=== PATIENT | male | born 1990 | race Hispanic/Latino ===

== ENCOUNTER 2018-06-27 18:39 | Inpatient (IN) | payer MEDICAID, OTHER ==
[2018-06-27 18:39] VITALS: BMI 24.4
--- NOTE | 2018-06-27 19:16 | C.PDOC ---
History Of Present Illness 28 y/o male presents to the ED requesting detox. Patient has a PMHx of heroin abuse, and last used earlier today. Otherwise he denies other drug use. Denies suicidal or homicidal ideation. Patient offers no physical complaints. Time Seen by Provider: 06/27/18 19:16 Chief Complaint (Nursing): Substance Abuse History Per: Patient History/Exam Limitations: no limitations Onset/Duration Of Symptoms: Days Current Symptoms Are (Timing): Still Present Suicide/Self Injury Attempted (Context): None Modifying Factor(s): Other (Heroin) Severity: None Associated Symptoms: denies: Anger, Anxiety, Suicidal Thoughts, Suicidal Plan Involuntary Hold By: None Additional History Per: Prior Records Past Medical History Reviewed: Historical Data, Nursing Documentation, Vital Signs Vital Signs: Last Vital Signs Temp 98.9 F 06/27/18 18:46 Pulse 95 H 06/27/18 18:46 Resp 18 06/27/18 18:46 BP 123/84 06/27/18 18:46 Pulse Ox 97 06/27/18 19:41 - Medical History PMH: Anxiety Denies: Depression, Diabetes, Hepatitis, HIV, HTN, Chronic Kidney Disease, Seizures, Sexually Transmitted Disease - [facility] Procedures DETOXIFICATION SERVICES FOR SUBSTANCE ABUSE TREATMENT (05/14/16) INJECT/INFUSE NEC (04/17/14) Family History: States: No Known Family Hx - Social History Hx Tobacco Use: Yes (1 PPD) Hx Alcohol Use: Yes Hx Substance Use: Yes - Immunization History Hx Tetanus Toxoid Vaccination: No Hx Influenza Vaccination: Yes Hx Pneumococcal Vaccination: No Review Of Systems Except As Marked, All Systems Reviewed And Found Negative. Constitutional: Negative for: Fever, Chills Gastrointestinal: Negative for: Nausea, Vomiting Psych: Positive for: Other (Heroin abuse). Negative for: Suicidal ideation Physical Exam - Physical Exam Appears: Non-toxic, No Acute Distress Skin: Warm, Dry Head: Normacephalic Eye(s): bilateral: Normal Inspection Oral Mucosa: Moist Neck: Trachea Midline, Supple Chest: Symmetrical Cardiovascular: Rhythm Regular Respiratory: No Rales, No Rhonchi, No Wheezing Gastrointestinal/Abdominal: Soft, No Tenderness, No Distention Extremity: Normal ROM Extremity: Bilateral: Atraumatic, Normal Color And Temperature, Normal ROM Neurological/Psych: Oriented x3 Gait: Steady ED Course And Treatment - Laboratory Results Result Diagrams: 06/27/18 19:49 06/27/18 19:49 O2 Sat by Pulse Oximetry: 97 (RA) Pulse Ox Interpretation: Normal Progress Note: Patient prescreened for detox. Blood work and urine sent. Crisis team to evaluate and arrange bed placement. Disposition Discussed With Dr.: Lucien Donovan Comment: accepted the pt on his service and took over the care at 9:37 PM Doctor Will See Patient In The: Hospital Counseled Patient/Family Regarding: Studies Performed, Diagnosis - Disposition Disposition: HOSPITALIZED Disposition Time: 19:16 Condition: FAIR Forms: [employer] (Y[place]i) - Clinical Impression Clinical Impression: Drug abuse, Drug dependence, Opioid use disorder - Scribe Statement The provider has reviewed the documentation as recorded by the Scribe (Alta Simms) Provider Attestation: All medical record entries made by the Scribe were at my direction and personally dictated by me. I have reviewed the chart and agree that the record accurately reflects my personal performance of the history, physical exam, medical decision making, and the department course for this patient. I have also personally directed, reviewed, and agree with the discharge instructions and disposition. Decision To Admit - Pt Status Changed To: Hospital Disposition Of: Inpatient - Admit Certification Admit to Inpatient:: After my assessment, the patient will require hospitalization for at least two midnights. This is because of the severity of symptoms shown, intensity of services needed, and/or the medical risk in this patient being treated as an outpatient. - InPatient: Physician Admission Certification: I certify that this patient requires 2 or more midnights of care for the following reason:: After my assessment, the patient will require hospitalization for at least two midnights. This is because of the severity of symptoms shown, intensity of services needed, and/or the medical risk in this patient being treated as an outpatient. - . Bed Request Type: Detox Admitting Physician: Lucien Donovan Patient Diagnosis: Drug abuse, Drug dependence, Opioid use disorder
[2018-06-27 20:02] LABS: BASO % 0.6 % (0.0-2.0); EOS # 0.2 K/uL (0.0-0.7); HEMOGLOBIN 14.5 g/dL (12.0-18.0); LYMPH # 1.5 K/uL (1.0-4.3); LYMPH % 18.6 % (20.0-40.0); MEAN CORPUSCULAR HEMOGLOBIN 27.8 pg (27.0-31.0); MEAN CORPUSCULAR HGB CONC 33.7 g/dL (33.0-37.0); MEAN PLATELET VOLUME 8.7 fL (7.2-11.7); MONO # 0.9 K/uL (0.0-0.8); MONO % 10.7 % (0.0-10.0); NEUT # 5.4 K/uL (1.8-7.0); NEUT % 68.1 % (50.0-75.0); NRBC % 0.2 % (0.0-2.0); RBC 5.23 Mil/uL (4.40-5.90); RED CELL DISTRIBUTION WIDTH 13.4 % (11.5-14.5); WHITE BLOOD COUNT 7.9 K/uL (4.8-10.8)
[2018-06-27 20:05] LABS: MEAN CELL VOLUME 82.5 fL (80.0-94.0)
[2018-06-27 20:29] LABS: ALB/GLOB RATIO 1.4 (1.0-2.1); ALBUMIN 4.8 g/dL (3.5-5.0); ALT/SGPT 48 U/L (21-72); AST/SGOT 65 U/L (17-59); BLOOD UREA NITROGEN 20 mg/dL (9-20); CALCIUM 9.7 mg/dl (8.6-10.4); GFR AFRICAN-AMERICAN > 60; GFR NON-AFRICAN AMERICAN > 60
[2018-06-27 20:36] LABS: URINE BILIRUBIN NEGATIVE (NEGATIVE); URINE BLOOD 1+ (NEGATIVE); URINE CLARITY Clear (Clear); URINE COLOR Yellow (YELLOW); URINE GLUCOSE (UA) NORMAL (Normal); URINE HYALINE CAST 0-2 /lpf (0-2); URINE LEUKOCYTE ESTERASE NEG Leu/uL (Negative); URINE PROTEIN 2+ mg/dL (NEGATIVE); URINE UROBILINOGEN NORMAL mg/dL (0.2-1.0)
[2018-06-27 20:51] LABS: BARBITURATES, UR NEGATIVE (NEGATIVE); BENZODIAZEPINES, UR NEGATIVE (NEGATIVE); PHENCYCLIDINE, UR NEGATIVE (NEGATIVE)
[2018-06-27 20:59] LABS: OPIATES, UR POSITIVE (NEGATIVE)
--- NOTE | 2018-06-28 01:23 | PCM.BM ---
<Ava Salas - Last Filed: 06/28/18 01:22> Treatment Plan Problems - Problems identified on initial assessmt Opiate Dependence Date Initiated: 06/27/18 Time Initiated: 23:45 Assessment reference: NA Status: Active Treatment assets and liabiliti Patient Assests: ADL independent Patient Liabilities: substance abuse - Milieu Protocol Maintain good personal hygiene: daily Encourage regular showers, daily Remind patient to perform daily oral care, daily Assist patient to perform ADL's Maintain personal safety: every shift Educate patient to report safety concerns to staff, every shift Monitor environment for contraband/sharps Medication safety: Monitor for expected outcome, potential side effects: every shift, Assess barriers to learning: every shift, Assess readiness for medication education: every shift <Zabrina Silver - Last Filed: 06/29/18 10:31> Family Contact Family involvement: Famliy/SO not involved - Goals for Treatment Patient goals for treatment: Complete detox and apply for rehab at [facility]. Discharge/Continuing Care - Education Needs Education Needs: Patient Medication, Patient Diagnosis/Disease Process, Patient Coping Skills, Patient Anger Management skills, Patient Placement options, Patient Community resources - Discharge Discharge Criteria: No longer exhibiting s/s of withdrawal, Reduction of target symptoms Discharge to:: Substance Abuse Rehab - Treatment Team Participation Patient/Family/SO Statement: 06/29/18 10:31 "I need to go to [facility] Discussed with Family/SO: No Was Patient/Family/SO present at Treatment Team Meeting: Yes <Jonel Fitzpatrick - Last Filed: 06/29/18 11:59> - Diagnosis (1) Opioid use disorder Status: Acute Interventions: 06/29/18 11:59 * Assess 7x/week regarding severity of withdrawal * Educate regarding risks, benefits, side effects and alternatives of medications * Use Motivational Interviewing for abstinence * Use CBT for relapse prevention * Medication management for withdrawal symptoms * Encourage medication assisted treatment *
[2018-06-28] MEDS ORDERED: Buprenorphine Hydrochloride 2 mg SL ONE ×2 (10:19→11:30)
--- NOTE | 2018-06-28 11:28 | PCM.PSYCH ---
Initial Psychiatric Evaluation - Initial Psychiatric Evaluation Type of Admission: Voluntary Legal Status: Capacity Chief Complaint (in patient's own words): "I want to detox from heroin" History of Present Illness and Precipitating Events: HPI: Patient is a 28 year old single male with one 3 year old child who reports for detox from heroin abuse. He states he has been using 8-10 bags intranasally and intravenously for the past year, however states he initially started using heroin at the age of 17. He admits to using cocaine, snorts 4 times a day. He states he last used yesterday morning. He admits to recently being in [facility] for burglary, released 4 months ago. He denies prior use of Suboxone or Vivitrol. He states he would like to go to [facility] upon discharge. He was recently admitted in April 2016 for heroin detox, however states that he never followed up with [facility] on discharge. He now complains of feeling tired, complaining of mild abdominal cramping, nausea. Past psychiatric illness: has been to detox twice before. History of anxiety and depression, stopped taking medications Social hx: Heroin abuse, 8-10 bags daily, intranasally and intravenously. Cocaine abuse 4 times daily since age of 19. Marijuana: 5-6 blunts daily since age 15. Smokes 1ppd cigarettes. Occasional alcohol use. Single, with one child aged 3. 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 Used to live at his child's mother's house. Released from [facility] 4 months. Family hx: Brother: heroin abuse, mother: alcohol abuse. PMH: denies Meds: None Allergies: NKDA Current Medications: Active Medications Generic Name Dose Route Start Last Admin Trade Name Freq PRN Reason Stop Dose Admin Buprenorphine HCl 6 mg 06/28/18 11:30 Subutex SL 06/28/18 11:31 ONCE ONE Buprenorphine HCl 6 mg 06/29/18 10:00 Subutex SL 07/02/18 09:59 .TAPER TAMMY Taper Clonidine HCl 0.1 mg 06/28/18 01:49 Catapres PO Q6 PRN Opiate Withdrawal Hydroxyzine HCl 25 mg 06/28/18 01:48 Atarax PO Q6 PRN Anxiety Past Psychiatric History - Past Psychiatric History Previous Treatment History: Inpatient Pertinent Medical Hx (Current Medical&Sleep Prob, Allergies): Allergies Allergy/AdvReac Type Severity Reaction Status Date / Time No Known Allergies Allergy Verified 06/27/18 18:48 No Known Home Med 06/27/18 Review of Systems - Psychiatric Psychiatric: absent: Anxiety, Auditory Hallucinations, Depression, Homicidal Ideation, Suicidal Ideation, Visual Hallucinations Mental Status Examination - Personal Presentation Personal Presentation: Looks stated age - Affect Affect: Constricted - Motor Activity Motor Activity: Calm - Reliability in Providing Information Reliability in Providing Information: Fair - Speech Speech: Organized, Relevant, Coherent - Mood Mood: Neutral - Formal Thought Process Formal Thought Process: No Impairment - Hallucinations/Delusions Additional comments: No hallucinations or delusions - Obsessions/Compulsions Obsessions: No Compulsions: No - Cognitive Functions Orientation: Person, Place, Situation, Time Sensorium: Alert Estimate of Intelligence: Average Judgement: Imparied, as evidence by: Poor judgement Memory: Recent intact, as evidence by: Ability to recall events of the day - Risk Risk: Withdrawal, Diminished functioning DSM 5 DX - DSM 5 DSM 5 Diagnosis: Opioid use disorder, severe Opioid withdrawal Cocaine use disorder - Recommended/Plan of Treatment Treatment Recommendations and Plan of Treatment: Opioid use disorder, severe Opioid withdrawal Subutex taper Clonidine 0.1mg PO Q6 PRN Atarax 25mg PO Q6 PRN Attend groups and activities Supportive therapy and psychoeducation MN for abstinence CBT for relapse prevention Encourage MAT Cocaine use disorder Attend groups and activities Supportive therapy and psychoeducation MN for abstinence CBT for relapse prevention Encourage MAT Cannabis use disorder Attend groups and activities Supportive therapy and psychoeducation MN for abstinence CBT for relapse prevention Encourage MAT 33 mins Case discussed with Dr. Nanette Haney, PGY1
[2018-06-29] MEDS: Buprenorphine Hydrochloride 2 mg SL SCH (09:24)
--- NOTE | 2018-06-29 12:49 | PCM.PYCHPN ---
Psychiatric Progress Note - Psychiatric Progress Note Patient seen today, length of contact: 16 min Patient Chief Complaint: "I feel better" Problems Identified/Issues Discussed: The pt is seen, chart reviewed, case discussed with staff. The pt is compliant with medications and reports no side-effects. Symptoms are improving but needs more time to stabilize. Pt attends groups and activities. Support given, psycho-education provided. After care discussed. Medication Change: Yes (detox changes daily) Medical Record Reviewed: Yes Mental Status Examination - Cognitive Function Orientation: Person, Place, Situation, Time Memory: Intact Attention: WNL Concentration: WNL Association: WNL Fund of Knowledge: WNL - Mood Mood: Anxious - Affect Affect: Constricted - Speech Speech: Appropriate - Formal Thought Process Formal Thought Process: No Impairment - Suicidal Ideation Suicidal Ideation: No - Homicidal Ideation Homicidal Ideation: No Goal/Treatment Plan - Goal/Treatment Plan Need for Continued Stay: Discharge may exacerbated symptoms, Severe functional impairment Progress Toward Problem(s) and Goals/Treatment Plan: Continue medications Support and psychoeducation daily Attend groups and activities daily After care planning by counselors - he wants to go to [facility] ([facility] by [employer]) Estimated Date of D/C: 07/01/18
[2018-06-30] MEDS: Buprenorphine Hydrochloride 2 mg SL SCH (10:49)
[2018-06-30] MEDS ORDERED: Vitamins A & D Oint UD Foilpak TOP PRN (11:42)
--- NOTE | 2018-06-30 12:53 | PCM.PYCHPN ---
Psychiatric Progress Note - Psychiatric Progress Note Patient seen today, length of contact: 15 min Patient Chief Complaint: "I'm getting better" Problems Identified/Issues Discussed: The pt is seen, chart reviewed, case discussed with staff. The pt is compliant with medications and reports no side-effects. Symptoms are improving but needs more time to stabilize. After care discussed, support and psychoeducation given. Medication Change: Yes (detox changes daily) Medical Record Reviewed: Yes Mental Status Examination - Cognitive Function Orientation: Person, Place, Situation, Time Memory: Intact Attention: WNL Concentration: WNL Association: WNL Fund of Knowledge: WNL - Mood Mood: Anxious - Affect Affect: Constricted - Speech Speech: Appropriate - Formal Thought Process Formal Thought Process: No Impairment - Suicidal Ideation Suicidal Ideation: No - Homicidal Ideation Homicidal Ideation: No Goal/Treatment Plan - Goal/Treatment Plan Need for Continued Stay: Discharge may exacerbated symptoms, Severe functional impairment Progress Toward Problem(s) and Goals/Treatment Plan: Continue medications Support and psychoeducation daily Attend groups and activities daily After care planning by counselors - he wants to go to [facility] Estimated Date of D/C: 07/01/18
[2018-07-01 08:47] VITALS: BP 121/66; PULSE 56; RESP 20; TEMP 97.8; O2SAT 100
[2018-07-01] MEDS: Buprenorphine Hydrochloride 2 mg SL SCH (09:20)
--- NOTE | 2018-07-01 10:20 | PCM.PYCHDC ---
Mental Status Examination - Mental Status Examination Orientation: Person, Place, Situation, Time Memory: Intact Mood: Neutral Affect: Constricted Speech: Soft Attention: WNL Concentration: WNL Association: WNL Fund of Knowledge: WNL Formal Thought Process: No Impairment Description of patient's judgement and insight: good, fair Psychotic Thoughts and Behaviors: denies any AVH Suicidal Ideation: No Current Homicidal Ideation?: No Discharge Summary - Discharge Note Reason for Hospitalization: HPI: Patient is a 28 year old single male with one 3 year old child who reports for detox from heroin abuse. He states he has been using 8-10 bags intranasally and intravenously for the past year, however states he initially started using heroin at the age of 17. He admits to using cocaine, snorts 4 times a day. He states he last used yesterday morning. He admits to recently being in [facility] for burglary, released 4 months ago. He denies prior use of Suboxone or Vivitrol. He states he would like to go to [facility] upon discharge. He was recently admitted in April 2016 for heroin detox, however states that he never followed up with [facility] on discharge. He now complains of feeling tired, complaining of mild abdominal cramping, nausea. Past psychiatric illness: has been to detox twice before. History of anxiety and depression, stopped taking medications Social hx: Heroin abuse, 8-10 bags daily, intranasally and intravenously. Cocaine abuse 4 times daily since age of 19. Marijuana: 5-6 blunts daily since age 15. Smokes 1ppd cigarettes. Occasional alcohol use. Single, with one child aged 3. 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 Used to live at his child's mother's house. Released from [facility] 4 months. Family hx: Brother: heroin abuse, mother: alcohol abuse. PMH: denies Meds: None Allergies: NKDA Consultations:: List each consultation separately and include: 1. Reason for request. 2. Findings. 3. Follow-up Summary of Hospital Course include:: 1. Description of specific treatment plan utilized for patients during their course of treatmen. 2. Summarize the time- course for resolution of acute symptoms and/or regressed behaviors. 3. Describe issues identified and worked on during hospitalization. 4. Describe medication utilized. 5. Describe medical problems identified and treated. 6. Reassessment of suicide risk - Final Diagnosis (DSM 5) Condition upon Discharge: FAIR DSM 5: Opioid use disorder, severe Opioid withdrawal Cocaine use disorder Disposition: HOME/ ROUTINE Prescriptions/Medication Reconciliation: traZODone [Desyrel] 50 mg PO HS PRN #30 tab PRN Reason: Insomnia - Smoking Cessation Smoking Cessation Medication prescribed: No - Antipsychotic Medications Pt discharged on 2 or more routine antipsychotic medications: No
== END 2018-07-01 10:45 | disposition home or self-care (01) | DRG 745 ==
LOC: C.ER 18:39 → C.7D 21:36
PROC: HZ2ZZZZ Detoxification Services for Substance Abuse Treatment (ICD-10-PCS; principal; 2018-06-27)
PROC: HZ52ZZZ Individual Psychotherapy for Substance Abuse Treatment, Cognitive-Behavioral (ICD-10-PCS; 2018-06-27)
PROC: HZ59ZZZ Individual Psychotherapy for Substance Abuse Treatment, Supportive (ICD-10-PCS; 2018-06-27)
PROC: HZ56ZZZ Individual Psychotherapy for Substance Abuse Treatment, Psychoeducation (ICD-10-PCS; 2018-06-27)
PROC: HZ42ZZZ Group Counseling for Substance Abuse Treatment, Cognitive-Behavioral (ICD-10-PCS; 2018-06-27)
PROC: HZ46ZZZ Group Counseling for Substance Abuse Treatment, Psychoeducation (ICD-10-PCS; 2018-06-27)
PROC: GZHZZZZ Group Psychotherapy (ICD-10-PCS; 2018-06-27)
PROC: GZ58ZZZ Individual Psychotherapy, Cognitive-Behavioral (ICD-10-PCS; 2018-06-27)
PROC: GZ56ZZZ Individual Psychotherapy, Supportive (ICD-10-PCS; 2018-06-27)
DX: F11.23 Opioid dependence with withdrawal (principal); F17.210 Nicotine dependence, cigarettes, uncomplicated; F14.10 Cocaine abuse, uncomplicated; F41.9 Anxiety disorder, unspecified; F12.10 Cannabis abuse, uncomplicated; F32.9 Major depressive disorder, single episode, unspecified